=== PATIENT | female | born 1985 | race Caucasian/White ===

== ENCOUNTER 2021-08-10 13:52 | Outpatient (REF) | payer MEDICAID, SELFPAY ==
[2021-08-10 15:46] LABS: HCT 41.4 % (36.0-46.0); HGB 13.8 g/dL (11.2-15.7); MCH 29.2 pg (27.0-33.0); MCHC 33.3 % (32.0-36.0); MCV 87.5 fL (80-95); MPV 9.6 fL (8.0-11.0); Platelet Count 255 10^3/uL (130-400); RBC 4.73 10^6/uL (3.93-5.22); RDW 11.9 % (11.7-14.6); RDW-SD 38.4 fL; WBC 7.67 10^3/uL (4.4-10.8)
[2021-08-10 16:25] LABS: ALT 40 U/L (14-59); AST 18 U/L (15-37); Albumin 3.9 g/dL (3.4-5.0); Alkaline Phosphatase 55 U/L (46-116); Anion Gap 9.2 mmol/L (3-11); BUN 17 mg/dL (7-18); Bilirubin, Total 0.4 mg/dL (0.2-1.0); CO2 27.8 mmol/L (21.0-32.0); CREATININE 1.1 mg/dL (0.55-1.02); Chloride 103 mmol/L (98-107); Estimated GFR 55.59 (mL/min/1.73m2); Glucose 81 mg/dL (74-106); Potassium 4.1 mmol/L (3.5-5.1); Sodium 140 mmol/L (136-145); TSH (W/Ref FT4) 2.02 uIU/mL (0.36-3.74); Total Protein 7.1 g/dL (6.4-8.2)
== END 2021-08-10 13:53 | disposition home or self-care (01) ==
LOC: NCHCN 13:52
PROVIDERS: PCP General Practice; Visit Provider Nurse Practitioner Family
DX: I10 Essential (primary) hypertension (principal); E66.9 Obesity, unspecified
CPT/HCPCS: 80053; 85027; 84443

== ENCOUNTER 2021-08-12 12:07 | Inpatient (IN) | payer MEDICAID, SELFPAY ==
[2021-08-12] VITALS (59 sets, daily range): BP systolic 165–219; BP diastolic 80–135; PULSE 55–89; RESP 11–36; TEMP 36.4–37.2; O2SAT 93–97
--- NOTE | 2021-08-12 12:15 | RT.EKG_ITS ---
APPROVED REPORT Exam: Resting ECG Reason for Exam: chest pain Patient Location: E HR:62 bpm ECG Measurements Heart Rate 62 AXIS [place] 171 P 57 QRSd 110 QRS -7 QT 418 T -5 QTc 425 Conclusion Sinus rhythm...normal P axis, V-rate 60- 99 Probable left ventricular hypertrophy...(RaVL+SV3)xQRSd >300. Sinus. No STEMI. I have reviewed and interpreted ECG and agree with software generated interpretation.
[2021-08-12 13:43] LABS: Abs Immature Grans 0.02 10^3/uL (0.0-0.06); Absolute Basophil Count 0.02 10^3/uL (0.0-0.2); Absolute Lymphocyte Count 2.17 10^3/uL (1.2-3.4); Absolute Monocyte Count 0.61 10^3/uL (0.1-0.8); Absolute Neutrophil Count 6.79 10^3/uL (1.2-6.7); Basophils % 0.2; HCT 42.3 % (36.0-46.0); HGB 14.1 g/dL (11.2-15.7); Immature Grans % 0.2; Lymphocytes % 21.9; MCH 28.7 pg (27.0-33.0); MCHC 33.3 % (32.0-36.0); MCV 86.2 fL (80-95); MPV 9.2 fL (8.0-11.0); Monocytes % 6.2; Neutrophils % 68.5; Nucleated RBC 0 %; Platelet Count 247 10^3/uL (130-400); RBC 4.91 10^6/uL (3.93-5.22); RDW-SD 37.2 fL; WBC 9.91 10^3/uL (4.4-10.8)
--- NOTE | 2021-08-12 13:45 | DI.CT_ITS ---
Exam(s) CT HEAD WO EXAM: CT HEAD WO CLINICAL HISTORY: headache, r/o acute cva. TECHNIQUE: Imaging Protocol: Axial computed tomography images with coronal and sagittal reformatted images were created and reviewed COMPARISON: CT HEAD WITHOUT CONTRAST from 09/28/2016 FINDINGS: There are no skull fractures. There is mucosal thickening noted in the floor of the left maxillary sinus. No associated fluid level within the sinus. Remainder of the paranasal sinuses are clear as are the mastoid air cells. There is no evidence of intracranial hemorrhage, mass effect, or shift of midline structures. There are no extra-axial fluid collections. The ventricles are not enlarged or shifted and there is no blo od within the ventricular system nor within the basal cisterns. IMPRESSION: No acute intracranial findings on this noninfused CT scan of the brain. RADIATION DOSE DELIVERED: 808.68mGy.cm Total DLP DATA REPOSITORY: All CT scans at this facility are submitted to the National Radiology Data Registry (NRDR) Dose Index Registry (DIR) with the [employer] (ACR). RADIATION OPTIMIZATION: All CT scans at this facility use at least one of these dose optimization te chniques: automated exposure control; mA and/or kV adjustment per patient size (includes targeted exa ms where dose is matched to clinical indication); or iterative reconstruction.
--- NOTE | 2021-08-12 13:45 | DI.RAD_ITS ---
Exam(s) XR CHEST 2V PA LATERAL EXAM: XR CHEST 2V PA LATERAL CLINICAL HISTORY: chest pain, r/o acute disease. TECHNIQUE: 2D digital imaging was performed. COMPARISON: CR ABD FLAT UPRIGHT PA CHEST from 04/16/2013 FINDINGS: 2 views: Heart size is normal. The mediastinum is not widened. Lungs are clear. No infiltrates nor pleural effusions. IMPRESSION: No acute pulmonary findings. DATA REPOSITORY: RADIATION DOSE DELIVERED:
--- NOTE | 2021-08-12 13:48 | ED.GENADUL_ITS ---
Discharge Plan Disposition Patient Disposition: [facility] INPATIENT Condition: Good Discharge Details Clinical Impression: Hypertensive urgency, Chest pain, Headache Admit Date/Time: 08/12/21 16:48 Admit Provider: Francy Overton Attending Provider: Francy Overton Primary Care Provider: Billy Vidales ED Provider: Estefanía Alcaraz Discharge Data Discharge Date/Time-TO BE ENTERED AT DEPARTURE: 08/12/21 17:42 Medical Decision Making 36-year-old female with a history of morbid obesity recently diagnosed with hypertension and placed on hydrochlorothiazide presents with headache and chest pain since yesterday and significantly high blood pressure at home. Blood pressure on arrival 219/106. EKG notes a rate of 62, sinus, no STEMI and nondiagnostic. She appears uncomfortable and endorses photophobia. She has no focal deficits. Differential diagnosis includes hypertensive emergency and will obtain CT head and cardiac work-up. We will give a dose of labetalol 10 mg IV x1. We will also treat pain component as this may be contributing to her hypertension with IV Tylenol, Decadron and IV fluids. Case discussed with Dr. Overton who agrees with labetalol and recommends to safely lowering blood pressure to no more than 160. If work-up negative and patient feels better, can discharge to home with addition of 5 mg of Norvasc with the continued hydrochlorothiazide dose. Labs and imaging reviewed and unremarkable. CT head and chest x-ray imaging negative. Blood pressure improving 171/97. It is now increasing again to 183/92. She states her headache is completely resolved but she is still endorsing some chest pain which is improved from 6/10 to 2/10. As patient has continued chest pain and remains hypotensive, will admit for continued telemetry monitoring blood pressure management and serial troponins and EKGs. Case discussed with Dr. Overton who accepts patient for admission considering her significant hypertension and complaint of chest pain-- although she clinically does not appear consistent with dissection, Dr. Overton requested a CT chest which is negative for dissection. Discussed with hospitalist team who were informed of negative CT chest and patient is accepted for admission. Medical Records Medical records reviewed: Yes I reviewed the patient's medical records. Imaging Data Radiologic Study: Radiologist's impression: ?CT HEAD WO CLINICAL HISTORY: ? headache, r/o acute cva. ? TECHNIQUE:? Imaging Protocol: Axial computed tomography images with coronal and sagittal reformatted images were created and reviewed COMPARISON:? CT HEAD WITHOUT CONTRAST from 09/28/2016 FINDINGS: ?There are no skull fractures.? There is mucosal thickening noted in the floor of the left maxillary sinus.? No associated fluid level within the sinus.? Remainder of the paranasal sinuses are clear as are the mastoid air cells. There is no evidence of intracranial hemorrhage, mass effect, or shift of midline structures.? There are no extra-axial fluid collections.? The ventricles are not enlarged or shifted and there is no blood within the ventricular system nor within the basal cisterns. IMPRESSION: No acute intracranial findings on this noninfused CT scan of the brain. XR CHEST 2V PA ? LATERAL CLINICAL HISTORY: ? chest pain, r/o acute disease. ? TECHNIQUE:? 2D digital imaging was performed. COMPARISON:? CR ABD FLAT UPRIGHT PA CHEST from 04/16/2013 FINDINGS: 2 views: Heart size is normal.? The mediastinum is not widened. Lungs are clear.? No infiltrates nor pleural effusions. Lab Data Lab results reviewed: Yes I reviewed the patient's lab results. Labs: Laboratory Tests Range/Units 08/12/21 08/12/21 13:26 13:26 WBC (4.4-10.8) 10^3/uL 9.91 RBC (3.93-5.22) 10^6/uL 4.91 Hgb (11.2-15.7) g/dL 14.1 Hct (36.0-46.0) % 42.3 MCV (80-95) fL 86.2 MCH (27.0-33.0) pg 28.7 MCHC (32.0-36.0) % 33.3 RDW (11.7-14.6) % 12.0 Plt Count (130-400) 10^3/uL 247 MPV (8.0-11.0) fL 9.2 Immature Gran % 0.2 Neutrophils % 68.5 Lymphocytes % 21.9 Monocytes % 6.2 Eosinophils % 3.0 Basophils % 0.2 Nucleated RBC % % 0 Absolute Neutrophils (1.2-6.7) 10^3/uL 6.79 H Absolute Lymphocytes (1.2-3.4) 10^3/uL 2.17 Absolute Monocytes (0.1-0.8) 10^3/uL 0.61 Absolute Eosinophils (0.0-0.7) 10^3/uL 0.30 Absolute Basophils (0.0-0.2) 10^3/uL 0.02 Sodium (136-145) mmol/L 139 Potassium (3.5-5.1) mmol/L 3.4 L Chloride (98-107) mmol/L 101 Carbon Dioxide (21.0-32.0) mmol/L 31.1 Anion Gap (3-11) mmol/L 6.9 BUN (7-18) mg/dL 15 Creatinine (0.55-1.02) mg/dL 1.1 H Estimated GFR/1.73 m2 (mL/min/1.73m2) 55.59 Glucose (74-106) mg/dL 101 Calcium (8.5-10.1) mg/dL 9.9 Magnesium (1.8-2.4) mg/dL 1.8 Total Bilirubin (0.2-1.0) mg/dL 0.4 AST (15-37) U/L 16 ALT (14-59) U/L 35 Alkaline Phosphatase (46-116) U/L 61 Troponin I (<or=60) ng/L < 50 Total Protein (6.4-8.2) g/dL 8.1 Albumin (3.4-5.0) g/dL 4.0 ECG Data Attestation: I personally reviewed and interpreted this ECG (s) as follows: Interpretation: rate of 62, sinus, no STEMI HPI General Mode of arrival: ambulatory . Date/Time Provider Initiated Documentation: 08/12/21 12:46 . Limitations to Documentation: no limitations . Information obtained by: patient . HPI Narrative: Patient is a 36-year-old female with a history of morbid obesity and recently diagnosed hypertension who presents to the ED with complaint of chest pain and headache since yesterday with high blood pressure at home. She states she saw her PCP 2 days ago for a dermatology referral and was noted to have hypertension in the office. She states she was started on hydrochlorothiazide yesterday and states she took a dose this morning. She states she has had headache behind both eyes which is 7/10 and substernal left-sided chest pain which is 6/10, constant and sharp since yesterday. She denies any aggravating or relieving fa ctors of her chest pain. She states her headache is worse with sensitivity to light. She denies any fever, blurry vision, dizziness, neck pain, shortness of breath, nausea, vomiting or unilateral numbness or weakness. Related Data Home Medications Medication Instructions Recorded Confirmed [id number]-fhmeankdjezlt-[id number] 250 1 ea PO Q6H PRN #30 tablet 09/28/16 08/12/21 mg-250 mg-65 mg tablet (Excedrin Migraine) hydrochlorothiazide 25 mg tablet 25 mg PO DAILY 08/12/21 08/12/21 amlodipine 5 mg tablet 5 mg PO DAILY #20 tab 08/13/21 atorvastatin 20 mg tablet 20 mg PO QPM #20 tab 08/13/21 metoprolol succinate 25 mg 25 mg PO DAILY #20 tab 08/13/21 tablet,extended release 24 hr Previous Rx's Medication Instructions Recorded [id number]-eyhnntzjvcmqy-pfyehoec 250 1 ea PO Q6H PRN #30 tablet 09/28/16 mg-250 mg-65 mg tablet (Excedrin Migraine) amlodipine 5 mg tablet 5 mg PO DAILY #20 tab 08/13/21 atorvastatin 20 mg tablet 20 mg PO QPM #20 tab 08/13/21 metoprolol succinate 25 mg 25 mg PO DAILY #20 tab 08/13/21 tablet,extended release 24 hr Allergies Allergy/AdvReac Type Severity Reaction Status Date / Time No Known Allergies Allergy Unverified 08/12/21 13:50 General Stated Complaint: Chest Pain COLETTE: 2 Review of Systems All systems reviewed & are unremarkable except as noted in HPI and below Constitutional Constitutional: Reports as per HPI, Denies chills, Denies excessive sweating, Denies fatigue, Denies fever(s) and Reports headache(s) Eyes Eyes: Denies blurry vision ENT Ears, Nose, Mouth, and Throat: Denies dizziness, Reports headache(s), Denies s ore throat and Denies throat swelling Cardiovascular Cardiovascular: Reports chest pain and Denies dyspnea Respiratory Respiratory: Denies cough and Denies dyspnea Gastrointestinal Gastrointestinal: Denies abdominal pain, Denies diarrhea and Denies vomiting Genitourinary Genitourinary: Denies hematuria and Denies dysuria Musculoskeletal Musculoskeletal: Denies back pain and Denies numbness Integumentary/Breasts Skin/Breast: Denies lesions and Denies rash Neurologic Neurologic: Denies behavioral changes, Denies confusion, Denies dizziness, Reports headache(s), Denies localized weakness and Denies numbness Psychiatric Psychiatric: Denies behavioral changes, Denies confusion and Denies depression Endocrine Endocrine: Denies excessive sweating and Denies fatigue Hematologic/Lymphatic Hematologic/Lymphatic: Denies easy bruising and Denies lymphadenopathy Allergic/Immunologic Allergic/Immunologic: Denies throat swelling PFSH All Active Problems (Updated 08/14/21 @ 00:04 by ORESTES BONILLA) LISA (obstructive sleep apnea) (Chronic) Hypomagnesemia (Acute) Hyperlipidemia (Acute) Dental abscess (Acute) Medical History Dizzy spells (10/19/16) HTN (hypertension) IUD surveillance (10/18/12) IUD surveillance (09/08/16) Migraine (09/08/16) Migraine without aura and without status migrainosus, not intractable (10/19/16) Morbid obesity Surgical History No significant past surgical history Family History Mother Diabetes Essential hypertension Migraine Father No problems noted. Grandmother Breast cancer paternal Social History Smoking/Tobacco Use Status: Former Tobacco Use Smoking risk assessment performed?: Yes Alcohol Intake: never Drug use: Never Substance use type: does not use Do you feel safe at home: Yes Do you feel safe in your relationship?: Yes Exam Const General: cooperative and uncomfortable Nutritional Appearance: obese morbidly obese Orientation: alert, awake and oriented x3 HENMT Head: normal to inspection Ears: hearing grossly normal bilaterally and external ears normal General nose exam: external nose normal Face and sinus: normal facial exam Mouth: oral mucosae normal Teeth and gingiva: dentition normal Throat: posterior oropharynx normal Eyes General: appearance normal, both eyes and all related structures Eyelids: eyelids normal Pupils: PERRL EOM: EOM intact bilaterally Neck Neck: normal visual inspection Lymphatic: no lymphadenopathy noted Chest Chest: normal inspection of the chest Resp Effort & Inspection: normal respiratory effort and able to speak in complete sentences Auscultation: clear to auscultation bilaterally Cardio Rate: regular rate Rhythm: regular rhythm GI Inspection: normal to inspection Palpation: soft, not firm, no guarding, no hepatosplenomegaly, no masses and nontender Auscultation: normal bowel sounds Back/Spine/Pelvis Back: no CVA tenderness Skin General skin exam: no rashes or lesions noted Neuro General: patient alert, patient awake, patient oriented x3, moves all extremities, no meningeal signs and no focal motor deficits Cranial Nerves: CN's II-XI intact bilaterally Cognition: normal cognition Speech: speech normal Gait: normal gait Motor: muscle tone normal throughout and strength 5/5 throughout Sensory Exam: no sensory deficits noted Extrem General: normal to inspection, full ROM and capillary refill normal Psych Appearance: grossly normal Mental Status: mental status grossly normal Speech and Movement: speech and movement normal Affect: normal affect Thought Process: normal Course Vital Signs Vital signs: Vital Signs Temperature 97.5 F L 08/12/21 12:33 Pulse 83 08/12/21 12:33 Respiratory Rate 16 08/12/21 12:33 Blood Pressure 219/106 H 08/12/21 12:33 Pulse Oximetry 96 08/12/21 12:33 Temperature 97.5 F L 08/12/21 12:33 Temperature Source Skin 08/12/21 12:33 Pulse 65 08/12/21 13:39 Pulse 82 08/12/21 13:40 Respiratory Rate 22 08/12/21 13:40 Respiratory Effort 08/12/21 13:19 Respiratory Depth Normal 08/12/21 13:19 Respiratory Pattern Normal 08/12/21 13:19 Blood Pressure 198/101 H 08/12/21 13:39 Blood Pressure Mean 122 08/12/21 13:39 Blood Pressure Position Sitting 08/12/21 12:33 Pulse Oximetry 96 08/12/21 13:40 Oxygen Delivery Method Room Air 08/12/21 12:33 Oxygen Flow Rate 0 08/12/21 12:33 Pain Level 6 08/12/21 12:33 Comment 6/10 LEMUS, pounding behind eyes 08/12/21 12:33 Lab/Test Results Lab/Test Results: Laboratory Tests Range/Units 08/12/21 13:26 WBC (4.4-10.8) 10^3/uL 9.91 RBC (3.93-5.22) 10^6/uL 4.91 Hgb (11.2-15.7) g/dL 14.1 Hct (36.0-46.0) % 42.3 MCV (80-95) fL 86.2 MCH (27.0-33.0) pg 28.7 MCHC (32.0-36.0) % 33.3 RDW (11.7-14.6) % 12.0 Plt Count (130-400) 10^3/uL 247 MPV (8.0-11.0) fL 9.2 Immature Gran % 0.2 Neutrophils % 68.5 Lymphocytes % 21.9 Monocytes % 6.2 Eosinophils % 3.0 Basophils % 0.2 Nucleated RBC % % 0 Absolute Neutrophils (1.2-6.7) 10^3/uL 6.79 H Absolute Lymphocytes (1.2-3.4) 10^3/uL 2.17 Absolute Monocytes (0.1-0.8) 10^3/uL 0.61 Absolute Eosinophils (0.0-0.7) 10^3/uL 0.30 Absolute Basophils (0.0-0.2) 10^3/uL 0.02
[2021-08-12 14:02] LABS: ALT 35 U/L (14-59); AST 16 U/L (15-37); Alkaline Phosphatase 61 U/L (46-116); Anion Gap 6.9 mmol/L (3-11); BUN 15 mg/dL (7-18); Bilirubin, Total 0.4 mg/dL (0.2-1.0); CO2 31.1 mmol/L (21.0-32.0); CREATININE 1.1 mg/dL (0.55-1.02); Calcium 9.9 mg/dL (8.5-10.1); Chloride 101 mmol/L (98-107); Estimated GFR 55.59 (mL/min/1.73m2); Glucose 101 mg/dL (74-106); Magnesium 1.8 mg/dL (1.8-2.4); Potassium 3.4 mmol/L (3.5-5.1); Sodium 139 mmol/L (136-145); Total Protein 8.1 g/dL (6.4-8.2); Troponin I < 50 ng/L (<or=60)
[2021-08-12] MEDS: Labetalol 100 MG/20 ML VIAL 10 MG IVP (14:08)
[2021-08-12] MEDS: Dexamethasone 10 MG/ML VIAL IVP (14:19)
[2021-08-12] MEDS: ACETAMINOPHEN 1,000 MG/100 ML BTL 400 MG IVPB (14:19)
[2021-08-12] MEDS: Normal Saline 500 ML IV (14:19)
--- NOTE | 2021-08-12 15:45 | DI.CT_ITS ---
Exam(s) CT THORAX CTA EXAM: CT THORAX CTA CLINICAL HISTORY: L sided chest pain, r/o dissection. TECHNIQUE: Imaging Protocol: CT angiography of the chest was performed using pulmonary embolus charan col. Multi planar reconstructions were performed. CONTRAST MATERIAL: Intravenous: Omnipaque 350 Contrast volume: 100 cc COMPARISON: No exams were available for comparison FINDINGS: CHEST: PULMONARY ARTERIES: There are no intraluminal filling defects to suggest acute pulmonary emboli. THORACIC AORTIC: Upper normal size. No dissection. LUNGS: There are no infiltrates nor evidence of pulmonary infarction.. There are no pleural effusions . No ominous pulmonary nodules MEDIASTINUM: There is no hilar nor mediastinal adenopathy. Visualized thyroid unremarkable. CARDIAC: Heart size is upper normal. There is no pericardial effusion.Caliber of the thoracic aorta is within normal limits. There is no significant shift of the interventricular septum. PARTIALLY VISUALIZED UPPERMOST ABDOMEN: No adrenal masses. Hepatic steatosis noted OSSEOUS: No significant osseous lesions.. IMPRESSION: 1. No evidence of acute pulmonary emboli. No evidence of pulmonary infarction.Lungs are clear. Ther e are also no pleural effusions 2. No evidence of aortic dissection. No pericardial effusion. Heart size normal. RADIATION DOSE DELIVERED: 607.6mGy.cm Total DLP DATA REPOSITORY: All CT scans at this facility are submitted to the National Radiology Data Registry (NRDR) Dose Index Registry (DIR) with the [employer] (ACR). RADIATION OPTIMIZATION: All CT scans at this facility use at least one of these dose optimization te chniques: automated exposure control; mA and/or kV adjustment per patient size (includes targeted exa ms where dose is matched to clinical indication); or iterative reconstruction.
[2021-08-12] MEDS: Omnipaque 350 MG/ML 100 ML BTL IJ (16:09)
--- NOTE | 2021-08-12 16:58 | HPE_ITS ---
Date of service: 08/12/21 Time of Service: 16:59 Assessment and Plan Assessment and plan (1) Hypertensive urgency: Start date: 08/12/21 Start time: 17:40 Status: Acute Assessment and plan: Blood pressures in the emergency room in the 220's systollically over 100's. Given labetalol in the ED, she was then below 180's. Will order telemetry, echo for Sunday, though she does not know if she can stay the ; the ultimate goal is for BP to slowly come down to 140's -160's then defer to pcp to tighten bp. She is agreeable to working on bp under 160 Requiring IV doses at this time Agreeable to outpatient Echo. (2) Chest pain: Start date: 08/12/21 Start time: 17:40 Status: Resolved Assessment and plan: No chest pain upon arrival to floor. (3) Headache: Start date: 08/12/21 Start time: 17:40 Status: Acute Assessment and plan: LEMUS resolved prior to arrival to floor. likely all related to bp elevation, possible dehydration (4) Hypokalemia: Start date: 08/12/21 Start time: 17:43 Status: Acute Assessment and plan: K level 3.4 will supplement with potassium and NS, monitor labs (5) DVT prophylaxis: Start date: 08/12/21 Start time: 17:40 Status: Acute Assessment and plan: Enoxaparin subcu based on wt., based on age she would not require chemical ppx however d/t BP and risk for CVA will anticoagulate (6) Discharge planning issues: Start date: 08/12/21 Start time: 17:43 Status: Acute Assessment and plan: Patient would like to go home as soon as possible. Discussed with Dr. Overton History of Present Illness History of Present Illness Chief Complaint: HTN uregency, LEMUS, CP Narrative: 36 y.o female presents to [facility] with a LEMUS, CP, and High blood pressure since feeling this way x 2 days. She was seen at her PCP on Sunday and noticed to have elevated BP at that time. She is morbidly obese with wt gain of almost a 100 lb in a couple of months since quitting smoking; at her PCP office she was placed on HCTZ. On arrival to the ED her bp was in the high 200's over 100's. EKG did reveal no STEMI, sinus rate of 62 without any other ectopic beats. She was given labetalol x 1, IV tylenol, decadron and IVF. CT of her head revealed no acuted findings, cxray negative for any acute process and thoracic CT ne gative for no PE, pulmonary infarctions, aortic dissections, or pericardial effusion. At this time her BP is 183/92 and she has been asked to be admitted to m/s for further maintenance. She is being admitted to m/s telemetery for further observation. At this time it is prudent to keep her SBP between 160-180, therefore IV lopressor to be given for SBP over 180 held for under 160. She will be initiated on IVF NS with 20K @ 100 an hour d/t hypokalemia. While on telemetry, monitor HR, urine and labs. Check for A1c, lipid panel. Consult cashiers supervisor. She would benefit from an echo the earliest would be Sunday. She does not know if she can stay until echo she is agreeable to getting be Bp to reasonable rate of 140-160 prior to d/c and having echo as an ouptpatient. She wants to go home to her kids and . She is agreeable to speaking with a cashiers supervisor. Review of Systems All systems reviewed & are unremarkable except as noted in HPI and below PFSH All Active Problems (Updated 08/13/21 @ 08:58 by Diana Lomas NP) Discharge planning issues (Acute) Hypokalemia (Acute) DVT prophylaxis (Acute) Hypertensive urgency (Acute) Headache (Acute) Dental abscess (Acute) Medical History Dizzy spells (10/19/16) HTN (hypertension) IUD surveillance (10/18/12) IUD surveillance (09/08/16) Migraine (09/08/16) Migraine without aura and without status migrainosus, not intractable (10/19/16) Morbid obesity Surgical History No significant past surgical history Family History Mother Diabetes Essential hypertension Migraine Father No problems noted. Grandmother Breast cancer paternal Social History Smoking/Tobacco Use Status: Former Tobacco Use Smoking risk assessment performed?: Yes Alcohol Intake: never Drug use: Never Substance use type: does not use Do you feel safe at home: Yes Do you feel safe in your relationship?: Yes Meds Allergies and Home Medications Allergies Allergy/AdvReac Type Severity Reaction Status Date / Time No Known Allergies Allergy Unverified 08/12/21 13:50 Home Medications Medication Instructions Recorded Confirmed Type dqayiew-jqetttertdypy-ylpzizcn 250 1 ea PO Q6H PRN #30 tablet 09/28/16 08/12/21 Rx mg-250 mg-65 mg tablet (Excedrin Migraine) hydrochlorothiazide 25 mg tablet 25 mg PO DAILY 08/12/21 08/12/21 History Exam Narrative Exam Narrative: Pleasant and cooperative. Const General: cooperative, comfortable and no acute distress Nutritional Appearance: obese morbidly obese Orientation: alert, awake and oriented x3 Eyes Eyelids: eyelids normal Pupils: PERRL EOM: EOM intact bilaterally Neck Neck: normal visual inspection and no JVD Lymphatic: no lymphadenopathy noted Resp Effort & Inspection: normal respiratory effort Auscultation: clear to auscultation bilaterally Cardio Jugular venous pressure: no JVD Rhythm: regular rhythm Heart Sounds: S1 normal GI Auscultation: normal bowel sounds General: No CVA tenderness and deferred Skin General skin exam: no rashes or lesions noted Neuro General: patient alert, patient awake and patient oriented x3 Cognition: normal cognition Speech: speech normal Gait: normal gait Extrem General: normal to inspection, full ROM and no clubbing, cyanosis or edema Results Labs Result diagrams: 08/13/21 06:40 08/13/21 06:40 Labs: Laboratory Results - last 24 hr 08/12/21 08/12/21 13:26 13:26 WBC 9.91 RBC 4.91 Hgb 14.1 Hct 42.3 MCV 86.2 MCH 28.7 MCHC 33.3 RDW 12.0 Plt Count 247 MPV 9.2 Immature Gran % 0.2 Neutrophils % 68.5 Lymphocytes % 21.9 Monocytes % 6.2 Eosinophils % 3.0 Basophils % 0.2 Nucleated RBC % 0 Absolute Neutrophils 6.79 H Absolute Lymphocytes 2.17 Absolute Monocytes 0.61 Absolute Eosinophils 0.30 Absolute Basophils 0.02 Sodium 139 Potassium 3.4 L Chloride 101 Carbon Dioxide 31.1 Anion Gap 6.9 BUN 15 Creatinine 1.1 H Estimated GFR/1.73 m2 55.59 Glucose 101 Calcium 9.9 Magnesium 1.8 Total Bilirubin 0.4 AST 16 ALT 35 Alkaline Phosphatase 61 Troponin I < 50 Total Protein 8.1 Albumin 4.0 Last Vital Signs Temp 36.4 C L 08/12/21 12:33 Pulse 74 08/12/21 16:14 Resp 16 08/12/21 16:14 BP 183/92 H 08/12/21 16:14 Pulse Ox 96 08/12/21 16:14
[2021-08-12 17:57] LABS: *AMPHETAMINES SCREEN URINE Negative (Negative); *BARBITURATES SCREEN URINE Negative (Negative); *BENZODIAZEPINES SCREEN URINE Negative (Negative); Cannabinoids THC Negative (Negative); Cocaine Screen,Urine Negative (Negative); METHADONE URINE SCREEN Negative (Negative); OPIATES URINE SCREEN Negative (Negative)
[2021-08-12 17:59] LABS: Tricyclic Antidepressants Negative (Negative)
[2021-08-12] MEDS: amLODIPine 5 MG TAB PO (18:11)
[2021-08-12] MEDS: Enoxaparin 40 MG/0.4 ML SYR SC (18:11)
[2021-08-12 18:14] LABS: Source Nasal/Nares
[2021-08-12] MEDS: Metoprolol 5 MG/5 ML VIAL IVP (18:15)
[2021-08-12] MEDS: Normal Saline Flush 10 ML SYR (18:45)
[2021-08-12 18:54] LABS: COVID-19 PCR Negative (Negative)
[2021-08-12] MEDS: POTASSIUM CHLORIDE/0.9% NACL 1,000 ML 100 MEQ IV (20:00)
[2021-08-12] MEDS: hydrALAZINE 20 MG/ML VIAL 10 MG IVP (20:37)
[2021-08-13 01:19] LABS: Bilirubin Negative (Negative); Blood Moderate (Negative); Clarity Clear (Clear); Glucose 500 mg/dL (Negative); Ketones Negative (Negative); Leukocyte Esterase Negative (Negative); Nitrite Negative (Negative); Urobilinogen 0.2 EU/dL (Up TO 0.2)
[2021-08-13 01:43] LABS: Bacteria Rare HPF (Negative); C & S Indicated? No; Crystals Negative HPF (Negative); Epithelial Cells Moderate HPF (Negative); Mucus Trace (Negative); WBC 0-2 HPF (0-5)
[2021-08-13] MEDS: Melatonin 3 MG TAB PO (02:54)
[2021-08-13 03:45] VITALS: BP 167/90; PULSE 78; RESP 20; TEMP 36.8; O2SAT 96
[2021-08-13] MEDS: POTASSIUM CHLORIDE/0.9% NACL 1,000 ML 100 MEQ IV (06:00)
[2021-08-13 07:39] LABS: Abs Immature Grans 0.06 10^3/uL (0.0-0.06); Absolute Basophil Count 0.01 10^3/uL (0.0-0.2); Absolute Lymphocyte Count 1.27 10^3/uL (1.2-3.4); Absolute Monocyte Count 0.41 10^3/uL (0.1-0.8); Absolute Neutrophil Count 10.94 10^3/uL (1.2-6.7); Basophils % 0.1; HCT 41.6 % (36.0-46.0); HGB 13.9 g/dL (11.2-15.7); Immature Grans % 0.5; MCH 28.9 pg (27.0-33.0); MCHC 33.4 % (32.0-36.0); MCV 86.5 fL (80-95); MPV 9.4 fL (8.0-11.0); Monocytes % 3.2; Neutrophils % 86.2; Nucleated RBC 0 %; Platelet Count 267 10^3/uL (130-400); RBC 4.81 10^6/uL (3.93-5.22); RDW 12.2 % (11.7-14.6); RDW-SD 38.1 fL; WBC 12.69 10^3/uL (4.4-10.8)
[2021-08-13 08:00] VITALS: BP 160/79; PULSE 82; RESP 20; TEMP 36.5; O2SAT 95
[2021-08-13 08:07] LABS: Hemoglobin A1C 5.9 % (<5.7)
[2021-08-13 08:12] LABS: ALT 29 U/L (14-59); AST 10 U/L (15-37); Albumin 3.6 g/dL (3.4-5.0); Alkaline Phosphatase 61 U/L (46-116); Anion Gap 10.9 mmol/L (3-11); BUN 19 mg/dL (7-18); Bilirubin, Total 0.2 mg/dL (0.2-1.0); CO2 26.1 mmol/L (21.0-32.0); Calculated LDL 157 mg/dL (<100); Chloride 103 mmol/L (98-107); Cholesterol 235 mg/dL (<200); Glucose 142 mg/dL (74-106); HDL Cholesterol 53 mg/dL (40-60); Magnesium 1.6 mg/dL (1.8-2.4); Potassium 3.7 mmol/L (3.5-5.1); Sodium 140 mmol/L (136-145); Total Protein 7.6 g/dL (6.4-8.2); Triglyceride 125 mg/dL (<150)
[2021-08-13 08:40] VITALS: PULSE 75
[2021-08-13] MEDS: amLODIPine 5 MG TAB PO (08:49)
[2021-08-13] MEDS: MAGNESIUM SULFATE 4 GM/100 ML BAG IVPB (10:37)
[2021-08-13] MEDS: hydroCHLOROthiazide 25 MG TAB PO (10:37)
[2021-08-13] MEDS: Metoprolol 12.5 MG TAB PO (10:37)
[2021-08-13 11:30] VITALS: BP 161/87; PULSE 85; RESP 19; TEMP 36.5; O2SAT 95
[2021-08-13 12:00] VITALS: BP 161/87; PULSE 85; RESP 19; TEMP 36.5; O2SAT 95
--- NOTE | 2021-08-13 13:09 | W.PM.DS.N ---
Date of service: 08/13/21 Time of Service: 10:30 DS: Diagnosis Discharge Diagnosis (1) Hypertensive urgency: Start date: 08/13/21 Start time: 10:30 Status: Acute Asessment and Plan: patient seen by PCP on sunday and shown to have bp over 200's started on HCTZ, presented to [facility] yesterday with CP, dizziness and LEMUS. She states it got progressively worse, therefore she came in. She was placed on amlodipine, teley with IV lopressor prn and oral lopressor to keep bp at 160; ideally 160 with follow with PCP next week defer to PCP for tighter control and to work on patients bp titration of medications. BP have been continuously 160's since NM. Will do outpatient echo and d/c home on atorvastatin 20 mg as well as she has elevated lipid panel. Agreeable to following up with a nutrionist as an outpatient as well. Low sodium diet. Discussed mediterran diet. A1C 5.9 (2) Hyperlipidemia: Start date: 08/13/21 Start time: 13:25 Status: Acute Asessment and Plan: as above (3) Chest pain: Start date: 08/13/21 Start time: 13:25 Status: Resolved Asessment and Plan: resolved no chest pain (4) Headache: Start date: 08/13/21 Start time: 13:28 Status: Resolved Asessment and Plan: Resolved no longer having LEMUS (5) Hypokalemia: Start date: 08/13/21 Start time: 13:25 Status: Resolved Asessment and Plan: resolved with IV supplementation (6) Hypomagnesemia: Start date: 08/13/21 Start time: 13:26 Status: Acute Asessment and Plan: 1.6 this am, repleted with 4 mg magnesium discussed with Dr. Overton. Discharge Plan Disposition Patient Disposition: HOME Condition: Good Discharge Details Reason For Visit: HTN, LEMUS Admit Date/Time: 08/12/21 16:48 Admit Provider: Francy Overton Attending Provider: Francy Overton Primary Care Provider: Billy Vidales Hospital Course Hospital Course: 36 y.o female presented to [facility] with a LEMUS, CP, and High blood pressure feeling this way x 2 days. She was seen at her PCP's office on Sunday and noticed to have elevated BP at that time. She is morbidly obese with wt gain of almost a 100 lb in a couple of months since quitting smoking; at her PCP office she was placed on HCTZ. On arrival to the ED her bp was in the high 200's over 100's. EKG did reveal no STEMI, sinus rate of 62 without any other ectopic beats. She was given labetalol x 1, IV tylenol, decadron and IVF. CT of her head revealed no acuted findings, cxray negative for any acute process and thoracic CT negative for no PE, pulmonary infarctions,? aortic dissections, or pericardial effusion. At this time her BP is 183/92 and she has been asked to be admitted to [facility] for further maintenance. She was admitted to [facility] with goal to keep BP around 160's. Over night she did require a dose medication due to higher elevations, overnight provider ordered hydralizine. She was placed on oral BB this am in addition to norvasc and hctz, since she has maintained in the 160's systolically and under 100's diabolically. We discussed dietary changes, and exercise. Lipid panel this am revealed elevated LDL at 157 with total cholesterol of 235. Started on atorvastatin. Discussed side effects of this medication. She will also be going home on amlodipine and lopressor in addition to HCTZ. Defer to PCP for tighter control of BP. Patient agreeable to echo and outpatient sleep study. She does have LISA but has not had sleep study in years. Will have her follow up in 1-2 weeks with PCP. She denies CP, SOB, LEMUS. States she is feeling much better and ready for discharge. Home Meds and New Rx's Prescriptions: New amlodipine 5 mg Tablet 5 mg PO DAILY Qty: 20 0RF atorvastatin 20 mg Tablet 20 mg PO QPM Qty: 20 0RF metoprolol succinate 25 mg tablet extended release 24 hr 25 mg PO DAILY Qty: 20 0RF Continued hydrochlorothiazide 25 mg tablet 25 mg PO DAILY 0RF Label Comments: TAKE ONE TABLET BY MOUTH EVERY DAY Excedrin Migraine 1 EACH tablet 1 ea PO Q6H PRN (Reason: Headache) Qty: 30 0RF Discharge Instructions Instructions: Hypokalemia (DC), Hypertensive Crisis (DC), Hypomagnesemia (DC), Mediterranean Diet (DC) Additional Instructions: Follow up with PCP in 1-2 weeks we will call Fabricio to make appt and call you with time and date. Follow Mediterranean diet. Set small goals Try to lose 10% of your body weight. Meet with the [facility] consultant, will set up to meet as an outpatient Echo to be set up as an outpatient and sleep study to be done as outpatient Buy bp cuff and measure bp twice a day after sitting for 10 mins with legs uncrossed, keep numbers written down and take to primary provider appt. Activity:: Activity as Tolerated Equipment/Supplies:: blood pressure cuff Diet:: Low Sodium Discharge Orders Discharge Orders: Discharge Order (Routine); Ordered 08/13/21 Ordered By: Diana Lomas DS: Summary Time Spent with Patient providing and/or coordinating discharge services: Less than 30 minutes Status at Discharge Functional status at discharge: independent ambulation Overall status at discharge: patient is progressing back to baseline Mental Status: mental status grossly normal Speech and Movement: speech and movement normal Mood: congruent mood Affect: normal affect Exam Narrative Exam Narrative: Pleasant and cooperative. Const General: cooperative, comfortable and no acute distress Nutritional Appearance: obese morbidly obese Orientation: alert, awake and oriented x3 Eyes Eyelids: eyelids normal Pupils: PERRL EOM: EOM intact bilaterally Neck Neck: normal visual inspection and no JVD Lymphatic: no lymphadenopathy noted Chest Chest: normal inspection of the chest and normal palpation of entire chest wall Resp Effort & Inspection: normal respiratory effort Auscultation: clear to auscultation bilaterally Cardio Jugular venous pressure: no JVD Rate: regular rate Rhythm: regular rhythm Heart Sounds: S1 normal GI Auscultation: normal bowel sounds General: No CVA tenderness and deferred Skin General skin exam: no rashes or lesions noted Neuro General: patient alert, patient awake and patient oriented x3 Cognition: normal cognition Speech: speech normal Gait: normal gait Extrem General: normal to inspection, full ROM and no clubbing, cyanosis or edema Psych Appearance: grossly normal and well kempt Mental Status: mental status grossly normal Speech and Movement: speech and movement normal Mood: congruent mood Affect: normal affect Attitude: cooperative DS: Data Vitals/I&O Vitals and I&O: Vital Signs Temperature 36.5 C 08/13/21 12:00 Temperature Source Temporal Artery Scan 08/13/21 12:00 Pulse 85 08/13/21 12:00 Pulse Rhythm Regular 08/13/21 08:20 Pulse 83 08/12/21 18:25 Respiratory Rate 19 08/13/21 12:00 Respiratory Effort Non-Labored 08/13/21 08:20 Respiratory Depth Normal 08/13/21 08:20 Respiratory Pattern Normal 08/13/21 08:20 Blood Pressure 161/87 H 08/13/21 12:00 Blood Pressure Mean 110 08/12/21 17:31 Blood Pressure Position Sitting 08/12/21 12:33 Pulse Oximetry 95 08/13/21 12:00 Oxygen Delivery Method Room Air 08/13/21 12:00 Oxygen Flow Rate 0 08/13/21 12:00 Pain Level 0 08/13/21 08:00 Comment 08/13/21 03:45 Intake & Output 08/12/21 08/13/21 08/13/21 23:59 11:59 23:59 Intake Total 600 / 600 1480 / 1480 Balance 600 / 600 1480 / 1480 Weight 132.449 kg Intake: IV 600 / 600 1000 / 1000 Oral 480 / 480 Other: Urine Appearance Clear Clear Sediment Sediment Comment pT voids independently in toilet Voiding Methods Toilet Data Completed and Pending Completed studies during hospitalization [Text1]: Exam(s) XR CHEST 2V PA ? LATERAL EXAM:? XR CHEST 2V PA ? LATERAL CLINICAL HISTORY: ? chest pain, r/o acute disease. ? TECHNIQUE:? 2D digital imaging was performed. COMPARISON:? CR ABD FLAT UPRIGHT PA CHEST from 04/16/2013 FINDINGS: 2 views: Heart size is normal.? The mediastinum is not widened. Lungs are clear.? No infiltrates nor pleural effusions. IMPRESSION: No acute pulmonary findings. EXAM: ? CT HEAD WO CLINICAL HISTORY: ? headache, r/o acute cva. ? TECHNIQUE:? Imaging Protocol: Axial computed tomography images with coronal and sagittal reformatted images were created and reviewed COMPARISON:? CT HEAD WITHOUT CONTRAST from 09/28/2016 FINDINGS: ?There are no skull fractures.? There is mucosal thickening noted in the floor of the left maxillary sinus.? No associated fluid level within the sinus.? Remainder of the paranasal sinuses are clear as are the mastoid air cells. There is no evidence of intracranial hemorrhage, mass effect, or shift of midline structures.? There are no extra-axial fluid collections.? The ventricles are not enlarged or shifted and there is no blood within the ventricular system nor within the basal cisterns. IMPRESSION: No acute intracranial findings on this noninfused CT scan of the brain. CHEST: PULMONARY ARTERIES: There are no intraluminal filling defects to suggest acute pulmonary emboli. THORACIC AORTIC: Upper normal size.? No dissection. LUNGS: There are no infiltrates nor evidence of pulmonary infarction.. There are no pleural effusions.? No ominous pulmonary nodules MEDIASTINUM: There is no hilar nor mediastinal adenopathy. Visualized thyroid unremarkable. CARDIAC: Heart size is upper normal.? There is no pericardial effusion.Caliber of the thoracic aorta is within normal limits.? There is no significant shift of the interventricular septum. PARTIALLY VISUALIZED UPPERMOST ABDOMEN: No adrenal masses.? Hepatic steatosis noted OSSEOUS: No significant osseous lesions.. IMPRESSION: 1. No evidence of acute pulmonary emboli.? No evidence of pulmonary infarction.Lungs are clear.? There are also no pleural effusions 2. No evidence of aortic dissection.? No pericardial effusion.? Heart size normal. Labs on day of discharge: Labs from last 24 hours 08/13/21 08/13/21 08/13/21 06:40 06:40 06:40 WBC 12.69 H RBC 4.81 Hgb 13.9 Hct 41.6 MCV 86.5 MCH 28.9 MCHC 33.4 RDW 12.2 Plt Count 267 MPV 9.4 Immature Gran % 0.5 Neutrophils % 86.2 Lymphocytes % 10.0 Monocytes % 3.2 Eosinophils % 0.0 Basophils % 0.1 Nucleated RBC % 0 Absolute Neutrophils 10.94 H Absolute Lymphocytes 1.27 Absolute Monocytes 0.41 Absolute Eosinophils 0.00 Absolute Basophils 0.01 Sodium 140 Potassium 3.7 Chloride 103 Carbon Dioxide 26.1 Anion Gap 10.9 BUN 19 H Creatinine 1.0 Estimated GFR/1.73 m2 >= 60.00 Glucose 142 H Hemoglobin A1c 5.9 H Calcium 9.0 Magnesium 1.6 L Total Bilirubin 0.2 AST 10 L ALT 29 Alkaline Phosphatase 61 Troponin I Total Protein 7.6 Albumin 3.6 Triglycerides 125 Total Cholesterol 235 H LDL Cholesterol, Calc 157 H HDL Cholesterol 53 Urine Color Urine Clarity Urine pH Ur Specific [place] Urine Protein Urine Ketones Urine Blood Urine Nitrite Urine Bilirubin Urine Urobilinogen Ur Leukocyte Esterase Urine RBC Urine WBC Ur Epithelial Cells Urine Crystals Urine Bacteria Urine Mucus Ur Culture Indicated? Urine Glucose Urine Opiates Screen Urine Methadone Screen Ur Barbiturates Screen Ur Tricyclics Screen Ur Amphetamines Screen U Benzodiazepines Scrn Urine Cocaine Screen Ur THC Screen COVID-19 Source SARS-CoV-2 (PCR) 08/13/21 08/13/21 08/12/21 01:03 00:37 17:30 WBC RBC Hgb Hct MCV MCH MCHC RDW Plt Count MPV Immature Gran % Neutrophils % Lymphocytes % Monocytes % Eosinophils % Basophils % Nucleated RBC % Absolute Neutrophils Absolute Lymphocytes Absolute Monocytes Absolute Eosinophils Absolute Basophils Sodium Potassium Chloride Carbon Dioxide Anion Gap BUN Creatinine Estimated GFR/1.73 m2 Glucose Hemoglobin A1c Calcium Magnesium Total Bilirubin AST ALT Alkaline Phosphatase Troponin I Total Protein Albumin Triglycerides Total Cholesterol LDL Cholesterol, Calc HDL Cholesterol Urine Color Cancelled Yellow Urine Clarity Cancelled Clear Urine pH Cancelled 7.0 Ur Specific [place] Cancelled 1.020 Urine Protein Cancelled 30 H Urine Ketones Cancelled Negative Urine Blood Cancelled Moderate H Urine Nitrite Cancelled Negative Urine Bilirubin Cancelled Negative Urine Urobilinogen Cancelled 0.2 Ur Leukocyte Esterase Cancelled Negative Urine RBC 5-10 H Urine WBC 0-2 Ur Epithelial Cells Moderate Urine Crystals Negative Urine Bacteria Rare Urine Mucus Trace Ur Culture Indicated? No Urine Glucose Cancelled 500 H Urine Opiates Screen Urine Methadone Screen Ur Barbiturates Screen Ur Tricyclics Screen Ur Amphetamines Screen U Benzodiazepines Scrn Urine Cocaine Screen Ur THC Screen COVID-19 Source Nasal/Nares SARS-CoV-2 (PCR) Negative 08/12/21 08/12/21 08/12/21 17:22 14:30 13:26 WBC 9.91 RBC 4.91 Hgb 14.1 Hct 42.3 MCV 86.2 MCH 28.7 MCHC 33.3 RDW 12.0 Plt Count 247 MPV 9.2 Immature Gran % 0.2 Neutrophils % 68.5 Lymphocytes % 21.9 Monocytes % 6.2 Eosinophils % 3.0 Basophils % 0.2 Nucleated RBC % 0 Absolute Neutrophils 6.79 H Absolute Lymphocytes 2.17 Absolute Monocytes 0.61 Absolute Eosinophils 0.30 Absolute Basophils 0.02 Sodium Potassium Chloride Carbon Dioxide Anion Gap BUN Creatinine Estimated GFR/1.73 m2 Glucose Hemoglobin A1c Calcium Magnesium Total Bilirubin AST ALT Alkaline Phosphatase Troponin I Total Protein Albumin Triglycerides Total Cholesterol LDL Cholesterol, Calc HDL Cholesterol Urine Color Urine Clarity Urine pH Ur Specific [place] Urine Protein Urine Ketones Urine Blood Urine Nitrite Urine Bilirubin Urine Urobilinogen Ur Leukocyte Esterase Urine RBC Urine WBC Ur Epithelial Cells Urine Crystals Urine Bacteria Urine Mucus Ur Culture Indicated? Urine Glucose Urine Opiates Screen Negative Urine Methadone Screen Negative Ur Barbiturates Screen Negative Ur Tricyclics Screen Negative Ur Amphetamines Screen Negative U Benzodiazepines Scrn Negative Urine Cocaine Screen Negative Ur THC Screen Negative COVID-19 Source Cancelled SARS-CoV-2 (PCR) Cancelled 08/12/21 13:26 WBC RBC Hgb Hct MCV MCH MCHC RDW Plt Count MPV Immature Gran % Neutrophils % Lymphocytes % Monocytes % Eosinophils % Basophils % Nucleated RBC % Absolute Neutrophils Absolute Lymphocytes Absolute Monocytes Absolute Eosinophils Absolute Basophils Sodium 139 Potassium 3.4 L Chloride 101 Carbon Dioxide 31.1 Anion Gap 6.9 BUN 15 Creatinine 1.1 H Estimated GFR/1.73 m2 55.59 Glucose 101 Hemoglobin A1c Calcium 9.9 Magnesium 1.8 Total Bilirubin 0.4 AST 16 ALT 35 Alkaline Phosphatase 61 Troponin I < 50 Total Protein 8.1 Albumin 4.0 Triglycerides Total Cholesterol LDL Cholesterol, Calc HDL Cholesterol Urine Color Urine Clarity Urine pH Ur Specific [place] Urine Protein Urine Ketones Urine Blood Urine Nitrite Urine Bilirubin Urine Urobilinogen Ur Leukocyte Esterase Urine RBC Urine WBC Ur Epithelial Cells Urine Crystals Urine Bacteria Urine Mucus Ur Culture Indicated? Urine Glucose Urine Opiates Screen Urine Methadone Screen Ur Barbiturates Screen Ur Tricyclics Screen Ur Amphetamines Screen U Benzodiazepines Scrn Urine Cocaine Screen Ur THC Screen COVID-19 Source SARS-CoV-2 (PCR) PFSH All Active Problems Hypomagnesemia (Acute) Hyperlipidemia (Acute) Discharge planning issues (Acute) DVT prophylaxis (Acute) Hypertensive urgency (Acute) Dental abscess (Acute) Medical History Dizzy spells (10/19/16) HTN (hypertension) IUD surveillance (10/18/12) IUD surveillance (09/08/16) Migraine (09/08/16) Migraine without aura and without status migrainosus, not intractable (10/19/16) Morbid obesity Surgical History No significant past surgical history Family History Mother Diabetes Essential hypertension Migraine Father No problems noted. Grandmother Breast cancer paternal Social History Smoking/Tobacco Use Status: Former Tobacco Use Smoking risk assessment performed?: Yes Alcohol Intake: never Drug use: Never Substance use type: does not use Do you feel safe at home: Yes Do you feel safe in your relationship?: Yes
[2021-08-13] MEDS: Metoprolol CR 25 MG TABCR PO (13:54)
[2021-08-13] MEDS: Normal Saline Flush 10 ML SYR IVP (14:51)
== END 2021-08-13 15:13 | disposition home or self-care (01) | DRG 305 ==
LOC: ER 17:46 → MS 17:50
PROVIDERS: Nurse Practitioner Family; Admitting Provider Internal Medicine; Emergency Provider Physician Assistant; PCP General Practice; Visit Provider Internal Medicine
DX: I16.0 Hypertensive urgency (principal); Z68.43 Body mass index [BMI] 50.0-59.9, adult; E87.6 Hypokalemia; R07.89 Other chest pain; E66.01 Morbid (severe) obesity due to excess calories; K04.7 Periapical abscess without sinus; G43.709 Chronic migraine without aura, not intractable, without status migrainosus; E78.5 Hyperlipidemia, unspecified; E83.42 Hypomagnesemia; G47.33 Obstructive sleep apnea (adult) (pediatric); Z87.891 Personal history of nicotine dependence
CPT/HCPCS: 36415; 71275; 80053; 80061; 80307; 81025; 87635; 93005; 96361; 96374; 96375; 99285; J1650; 70450; 71046; 81003; 81015; 83036; 83735; 84484; 85025; 93010; 99217; 99222; J0131; J0360; J1100; J3475; J3490

== ENCOUNTER 2021-09-06 12:59 | Outpatient (REF) | payer MEDICAID, SELFPAY ==
--- NOTE | 2021-09-06 10:45 | SKI_PTH ---
PATIENT: Flora Roldan I LOC: [facility]#:[id number] AGE/SX: 36/F ROOM: RE09/06/[address]: Quincy Velez : 1985 BED: DIS: 09/06/2021 SPEC #: [id number] RECD: 09/06/21 14:44 STATUS: BHARATH REQ #: [id number] GEGE: 09/06/21 10:[address]: Quincy Velez DEPT: Surgical Specimen RECD BY: Miguel Fleming Tissues: 1 - SKIN CYST/TAG/DEBRIDEMENT Procedures: GROSS AND MICRO LEVEL 3 Comments: [id number]
== END 2021-09-06 13:00 | disposition home or self-care (01) ==
LOC: NCHCN 12:59
PROVIDERS: PCP General Practice; Visit Provider Family Medicine
DX: D23.5 Other benign neoplasm of skin of trunk (principal); D22.5 Melanocytic nevi of trunk
CPT/HCPCS: 88304

== ENCOUNTER 2021-09-22 20:08 | Outpatient (REF) | payer MEDICAID, SELFPAY ==
[2021-09-22 20:55] LABS: Anion Gap 5.5 mmol/L (3-11); BUN 17 mg/dL (7-18); CO2 28.5 mmol/L (21.0-32.0); CREATININE 1.1 mg/dL (0.55-1.02); Calcium 9.3 mg/dL (8.5-10.1); Chloride 100 mmol/L (98-107); Estimated GFR 55.59 (mL/min/1.73m2); Glucose 88 mg/dL (74-106); Potassium 3.3 mmol/L (3.5-5.1); Sodium 134 mmol/L (136-145)
== END 2021-09-22 20:09 | disposition home or self-care (01) ==
LOC: NCHCN 20:08
PROVIDERS: PCP General Practice; Visit Provider Nurse Practitioner Family
DX: R94.4 Abnormal results of kidney function studies (principal)
CPT/HCPCS: 80048

== ENCOUNTER 2022-02-28 14:58 | Outpatient (REF) | payer MEDICAID, SELFPAY ==
[2022-02-28 23:14] LABS: Anion Gap 11.8 mmol/L (3-11); BUN 20 mg/dL (7-18); CO2 28.2 mmol/L (21.0-32.0); CREATININE 1.1 mg/dL (0.55-1.02); Calcium 9.4 mg/dL (8.5-10.1); Calculated LDL 143 mg/dL (<100); Chloride 101 mmol/L (98-107); Cholesterol 209 mg/dL (<200); Estimated GFR 65.96 (mL/min/1.73m2); Glucose 109 mg/dL (74-106); HDL Cholesterol 43 mg/dL (40-60); Magnesium 1.6 mg/dL (1.8-2.4); Potassium 3.4 mmol/L (3.5-5.1); Sodium 141 mmol/L (136-145); Triglyceride 116 mg/dL (<150)
== END 2022-02-28 14:59 | disposition home or self-care (01) ==
LOC: NCHCN 14:58
PROVIDERS: PCP General Practice; Visit Provider Nurse Practitioner Family
DX: E78.5 Hyperlipidemia, unspecified (principal); I10 Essential (primary) hypertension; E83.42 Hypomagnesemia; R94.4 Abnormal results of kidney function studies; E66.9 Obesity, unspecified
CPT/HCPCS: 80048; 80061; 83735

== ENCOUNTER 2022-08-28 17:35 | Emergency (ER) | payer MEDICAID, SELFPAY ==
[2022-08-28 17:43] VITALS: BP 143/87; PULSE 56; RESP 16; TEMP 37.3; O2SAT 97
--- NOTE | 2022-08-28 18:04 | ED.GENADUL_ITS ---
Discharge Plan Disposition Patient Disposition: Home Condition: Good Discharge Details Clinical Impression: Bursitis, olecranon, Elbow pain Primary Care Provider: Maria C Osborn ED Provider: Angeles Banuelos Home Meds and New Rx's Prescriptions: Continued hydrochlorothiazide 25 mg tablet 25 mg PO DAILY Patient Comments: TAKE ONE TABLET BY MOUTH EVERY DAY amlodipine 5 mg Tablet 5 mg PO DAILY Qty: 20 0RF atorvastatin 20 mg Tablet 20 mg PO QPM Qty: 20 0RF metoprolol succinate 25 mg tablet extended release 24 hr 25 mg PO DAILY Qty: 20 0RF Excedrin Migraine 1 EACH tablet 1 ea PO Q6H PRN (Reason: Headache) Qty: 30 0RF Discharge Instructions Instructions: Elbow Bursitis (ED) Additional Instructions: As we discussed, your imaging is reassuring here today. No evidence of fracture or dislocation. I am concerned that you may have developed olecranon bursitis. Please encourage rest, ice, elevation. Tylenol and ibuprofen as needed for discomfort and swelling. Please use the Urbano wrap to help with compression. He may use the sling if around other people to help protect the area but otherwise, please try to take this off as frequently as possible to allow for increased range of motion. please follow-up with primary care in 1 week for reevaluation. If you develop redness, warmth, drainage, increased pain, fever/chills or other new/worsening symptoms please seek care urgently once again. Referrals: Maria C Osborn [Primary Care Provider] - Discharge Data Discharge Date/Time-TO BE ENTERED AT DEPARTURE: 08/28/22 19:55 Medical Decision Making Patient is a pleasant [id number]-bmntapxi 37-year-old female, accompanied by her significant other, with chief complaint of left elbow pain. She reports this began yesterday after she was gardening for some period of time on Sunday. She reports that initially all of her joints were achy which she reports is typical for her after this increase in exertion. However, the elbow was slightly more tender than the other joints. While the other joints have improved, the left elbow has increasing discomfort, she is now noting some diff iculty with range of motion and posterior pain and swelling. She denies any trauma. No fevers or chills. No numbness or tingling. Has been using acetaminophen to help with discomfort. On exam, patient appears nontoxic. 2+ distal pulses. Full range of motion of the wrist. No pain to palpation over the shoulder. Is able to extend to about 45 degrees and flex to about 90. Maximal point of swelling and discomfort is over the olecranon process. No erythema or warmth is appreciated. No known tick bites or exposures. Neurologically intact. Sensation intact. History and exam is most consistent with olecranon bursitis. Patient does have elevated BMI and isolating this feature is slightly difficult. However, with palpation this seems most consistent. We will give ibuprofen to help with discomfort and obtain imaging. FINDINGS: Bones/joints: Normal. Soft tissues: Normal. IMPRESSION: No acute findings. Discussed this with patient. Her hx and exam is most consistent with olecranon bursitis. We did discuss drainage to ensure no bacterial cause but this is not consistent with history or exam, she would also prefer to hold off on drainage. Struct return precations discussed. Geven location and onset after the overuse, not consistent with tick born illness. No systemic symptoms. Will wrap with URBANO, encouraged RICE. All of their questions and concerns were addressed, they are in agreement with this plan. HPI General Date/Time Provider Initiated Documentation: 08/28/22 18:04 . Limitations to Documentation: no limitations . Information obtained by: patient, family () and RN notes reviewed . History of Present Illness 37 year old F presents to the emergency department with the chief complaint of left elbow pain, described as moderate, with intensity rated at 6. Quality is described as aching, and is localized to the left and upper extremity. Patient reports no radiation. Patient started experiencing this day(s) (2) and it has been constant. Immobilization improves symptom(s), Movement worsens symptoms . Patient notes no other symptoms.. Patient did receive the following treatments prior to arrival, NSAID Related Data Home Medications Medication Instructions Recorded Confirmed [id number] 250 1 ea PO Q6H PRN Headache ##30 09/28/16 08/28/22 mg-250 mg-65 mg tablet (Excedrin Migraine) hydrochlorothiazide 25 mg tablet 25 mg PO DAILY 08/12/21 08/28/22 amlodipine 5 mg tablet 5 mg PO DAILY #20 tabs 08/13/21 08/28/22 atorvastatin 20 mg tablet 20 mg PO QPM #20 tabs 08/13/21 metoprolol succinate 25 mg 25 mg PO DAILY #20 tabs 08/13/21 08/28/22 tablet,extended release 24 hr Previous Rx's Medication Instructions Recorded [id number]-[id number] 250 1 ea PO Q6H PRN Headache ##30 09/28/16 mg-250 mg-65 mg tablet (Excedrin Migraine) amlodipine 5 mg tablet 5 mg PO DAILY #20 tabs 08/13/21 atorvastatin 20 mg tablet 20 mg PO QPM #20 tabs 08/13/21 metoprolol succinate 25 mg 25 mg PO DAILY #20 tabs 08/13/21 tablet,extended release 24 hr Allergies Allergy/AdvReac Type Severity Reaction Status Date / Time No Known Allergies Allergy Unverified 08/28/22 17:46 General Stated Complaint: Orthopedic COLETTE: 4 Review of Systems Constitutional Constitutional: Reports as per HPI, Denies chills, Denies fever(s), Denies headache(s) and Denies weakness ENT Ears, Nose, Mouth, and Throat: Denies headache(s) Cardiovascular Cardiovascular: Reports as per HPI Respiratory Respiratory: Reports as per HPI and Denies cough Musculoskeletal Musculoskeletal: Reports as per HPI and Denies tingling Integumentary/Breasts Skin/Breast: Reports as per HPI, Denies rash and Denies wounds Neurologic Neurologic: Reports as per HPI, Denies headache(s), Denies tingling, Denies paresthesias and Denies weakness PFSH All Active Problems (Updated 08/28/22 @ 19:42 by KATHY Walton) Bursitis, olecranon (Acute) Elbow pain (Acute) LISA (obstructive sleep apnea) (Chronic) Hypomagnesemia (Acute) Hyperlipidemia (Acute) Dental abscess (Acute) Medical History Dizzy spells (10/19/16) HTN (hypertension) IUD surveillance (10/18/12) IUD surveillance (09/08/16) Migraine (09/08/16) Migraine without aura and without status migrainosus, not intractable (10/19/16) Morbid obesity Surgical History No significant past surgical history Family History Mother Diabetes Essential hypertension Migraine Father No problems noted. Grandmother Breast cancer paternal Social History Smoking/Tobacco Use Status: Former Tobacco Use Smoking risk assessment performed?: Yes Alcohol Intake: never Drug use: Never Substance use type: does not use Do you feel safe at home: Yes Do you feel safe in your relationship?: Yes Exam Const General: cooperative, healthy appearing, comfortable (appears uncomfortable with movement of the LUE), no acute distress, well developed and well groomed Nutritional Appearance: well nourished and overweight Orientation: alert and awake Resp Effort & Inspection: normal respiratory effort, able to speak in complete sentences and no respiratory distress Cardio Rate: regular rate Rhythm: regular rhythm Skin General skin exam: no rashes or lesions noted Lesions: no lesions Rashes: no rashes Trauma: no lacerations or abrasions Neuro General: patient alert and patient awake Cognition: normal cognition Speech: speech normal Motor: muscle tone normal throughout Sensory Exam: no sensory deficits noted Extrem Elbow/forearm/wrist images: 1. Area of maximal discomfort is over the left olectranon. 2+ distal pulses. sensation intact. RROM is limited with both flexion and extension lacking full range. Full pronation and supination. full ROM of wrist, hand and sholder. No erythema, warmth or drainage posterior elbow but this area is swollen over the olecrranon bursa. No break in the skin. No pain over the medial or lateral epicondylitis. Psych Appearance: grossly normal and well kempt Mental Status: mental status grossly normal Speech and Movement: speech and movement normal Course Vital Signs Vital signs: Vital Signs Temperature 37.3 C 08/28/22 17:43 Pulse 56 L 08/28/22 17:43 Respiratory Rate 16 08/28/22 17:43 Blood Pressure 143/87 H 08/28/22 17:43 Pulse Oximetry 97 08/28/22 17:43 Temperature 37.3 C 08/28/22 17:43 Temperature Source Oral 08/28/22 17:43 Pulse 56 L 08/28/22 17:43 Respiratory Rate 16 08/28/22 17:43 Respiratory Effort Normal 08/28/22 17:46 Blood Pressure 143/87 H 08/28/22 17:43 Blood Pressure Position Sitting 08/28/22 17:43 Pulse Oximetry 97 08/28/22 17:43 Oxygen Delivery Method Room Air 08/28/22 17:43 Oxygen Flow Rate 0 08/28/22 17:43 Pain Level 6 08/28/22 17:57
--- NOTE | 2022-08-28 18:15 | DI.RAD_ITS ---
Exam(s) XR ELBOW LT COMPLETE EXAM: XR ELBOW LT COMPLETE CLINICAL HISTORY: olecranon pain/swelling. TECHNIQUE: 2D digital imaging was performed of the left elbow. Three images were obtained. AP, lat eral and oblique views were obtained. COMPARISON: No exams were available for comparison FINDINGS: BONES: No acute fracture is present. No bony destructive lesion is seen. JOINTS: The elbow is normally aligned. No joint effusion is seen. SOFT TISSUE: Normal. IMPRESSION: Unremarkable radiographs of the left elbow. DATA REPOSITORY: RADIATION DOSE DELIVERED:
[2022-08-28] MEDS: Ibuprofen 600 MG TAB PO (18:28)
[2022-08-28 19:13] VITALS: BP 119/82; PULSE 51; RESP 20; TEMP 36.7; O2SAT 96
--- NOTE | 2022-08-28 19:24 | DI.VRAD_ITS ---
PROCEDURE INFORMATION: Exam: XR Left Elbow Exam date and time: 08/28/2022 6:56 PM Age: 37 years old Clinical indication: Left; Patient HX: L elbow pain, lrom, no known trauma TECHNIQUE: Imaging protocol: Radiologic exam of the left elbow. Views: 3 or more views. COMPARISON: No relevant prior studies available. FINDINGS: Bones/joints: Normal. Soft tissues: Normal. IMPRESSION: No acute findings. Dictated and Authenticated by: Fabián Frias MD. Ordering:TATY Reynoso MD
--- NOTE | 2022-08-31 10:46 | NUR.NOTE ---
Nursing Note:Accessed chart for [facility] billing purposes.
== END 2022-08-28 19:55 | disposition home or self-care (01) ==
PROVIDERS: Emergency Provider Physician Assistant; PCP Nurse Practitioner Family
DX: M70.22 Olecranon bursitis, left elbow (principal); I10 Essential (primary) hypertension; Z79.82 Long term (current) use of aspirin
CPT/HCPCS: 81025; 99283; 73080

== ENCOUNTER 2022-11-29 23:57 | Emergency (ER) | payer MEDICAID, SELFPAY ==
[2022-11-30] VITALS: BP 168/106; PULSE 69; RESP 16; TEMP 37.1; O2SAT 96
[2022-11-30 00:11] LABS: Bilirubin Negative (Negative); Blood Large (Negative); Clarity Cloudy (Clear); Glucose Negative (Negative); Ketones Negative (Negative); Leukocyte Esterase Large (Negative); Nitrite Negative (Negative); Urobilinogen 0.2 mg/dL (Up to 0.2); pH 6.5 (5-8)
[2022-11-30] MEDS: Ondansetron 4 MG/2 ML VIAL IVP (00:15)
--- NOTE | 2022-11-30 00:15 | ED.GENADUL_ITS ---
Discharge Plan Disposition Patient Disposition: Home Discharge Details Clinical Impression: Nausea & vomiting, Acute dehydration, UTI (urinary tract infection) Primary Care Provider: Maria C Osborn ED Provider: Fredy Still Home Meds and New Rx's Prescriptions: New ondansetron 4 mg tablet,disintegrating 4 mg PO Q8H Qty: 20 0RF cephalexin 500 mg capsule 500 mg PO QID 7 Days Qty: 28 0RF No Action hydrochlorothiazide 25 mg tablet 25 mg PO DAILY Patient Comments: TAKE ONE TABLET BY MOUTH EVERY DAY amlodipine 5 mg Tablet 5 mg PO DAILY Qty: 20 0RF atorvastatin 20 mg Tablet 20 mg PO QPM Qty: 20 0RF metoprolol succinate 25 mg tablet extended release 24 hr 25 mg PO DAILY Qty: 20 0RF Excedrin Migraine 1 EACH tablet 1 ea PO Q6H PRN (Reason: Headache) Qty: 30 0RF Discharge Instructions Instructions: Urinary Tract Infection in Women (ED), Acute Nausea and Vomiting (ED) Additional Instructions: At this time your electrolytes are stable. I suspect the nausea and vomiting diarrhea secondary to a viral etiology. In addition to this you do have a urinary tract infection. Please take the antibiotic as directed. It is been sent to your pharmacy on file. Please take the Zofran as needed for nausea and vomiting. If you notice any worsening of your symptoms, or any new symptoms such as vomiting, diarrhea, fever, chills, shortness of breath, chest pain, numbness, weakness, or fainting , please return immediately to the emergency department for reevaluation. Please follow up with your primary care provider as soon as possible for reassessment and reevaluation. As always, it was a pleasure participating in your medical care today. Referrals: Maria C Osborn [Primary Care Provider] - Discharge Data Discharge Date/Time-TO BE ENTERED AT DEPARTURE: 11/30/22 02:33 Medical Decision Making 37-year-old female with a past medical history of hypertension presents today for nausea and vomiting and diarrhea. Patient states [place] and [place] while [place] there 3 days ago she began feeling nauseous. Since then she has had nausea vomiting and diarrhea every day. She has not been able to keep anything down including water or crackers or toast. In addition to this she has had urinary burning frequency and feeling of pressure in the suprapubic region. She denies any fever or chills. No antibiotic use recently. No other sick contacts at home. No other generalized abdominal pain. No other complaints at this time. Exam demonstrates nontender abdomen. No flank or CVA tenderness. Notably dry mucous membranes are present. Differential is highest for gastroenteritis, potentially foodborne but more likely viral. We will get basic labs, rehydrate, evaluate for UTI, monitor closely and reassess. 2 L of IV fluids patient is feeling much better. She was able to tolerate p.o. well. Laboratory work-up is otherwise stable. Patient stable for discharge. Will give Zofran for home use. Repeat abdominal exam shows no tenderness whatsoever. Symptoms inconsistent with an acute surgical abdomen. Patient stable for discharge. Suspect viral etiology causing mild gastroenteritis clinically. I switched to return. I have extensively reviewed the treatment plan and discharge instructions with the patient. I have addressed all patient concerns at this time. The patient was made aware of what symptoms to monitor for that would warrant a return to the emergency department. Discussed the plan with the patient, they demonstrate verbal understanding and agreement with our assessment and plan at this time. The documentation in this chart was dictated using [employer] dictation software. Please excuse any dictation errors. HPI General Date/Time Provider Initiated Documentation: 11/30/22 00:04 . HPI Narrative: 37-year-old female with a past medical history of hypertension presents today for nausea and vomiting and diarrhea. Patient states that [place], and unfortunately while [place] there 3 days ago she began feeling nauseous. Since then she has had nausea vomiting and diarrhea every day. She has not been able to keep anything down including water or crackers or toast. In addition to this she has had urinary burning frequency and feeling of pressure in the suprapubic region. She denies any fever or chills. No antibiotic use recently. No other sick contacts at home. No other generalized abdominal pain. No other complaints at this time. Related Data Home Medications Medication Instructions Recorded Confirmed [id number]-odywkobqcsrge-gmdhyvqo 250 1 ea PO Q6H PRN Headache ##30 09/28/16 11/30/22 mg-250 mg-65 mg tablet (Excedrin Migraine) hydrochlorothiazide 25 mg tablet 25 mg PO DAILY 08/12/21 11/30/22 amlodipine 5 mg tablet 5 mg PO DAILY #20 tabs 08/13/21 11/30/22 atorvastatin 20 mg tablet 20 mg PO QPM #20 tabs 08/13/21 11/30/22 metoprolol succinate 25 mg 25 mg PO DAILY #20 tabs 08/13/21 11/30/22 tablet,extended release 24 hr cephalexin 500 mg capsule 500 mg PO QID 7 days #28 caps 11/30/22 ondansetron 4 mg disintegrating 4 mg PO Q8H #20 tabs 11/30/22 tablet Previous Rx's Medication Instructions Recorded [id number]-mrfbmndeifyhs-gveiewkk 250 1 ea PO Q6H PRN Headache ##30 09/28/16 mg-250 mg-65 mg tablet (Excedrin Migraine) amlodipine 5 mg tablet 5 mg PO DAILY #20 tabs 08/13/21 atorvastatin 20 mg tablet 20 mg PO QPM #20 tabs 08/13/21 metoprolol succinate 25 mg 25 mg PO DAILY #20 tabs 08/13/21 tablet,extended release 24 hr cephalexin 500 mg capsule 500 mg PO QID 7 days #28 caps 11/30/22 ondansetron 4 mg disintegrating 4 mg PO Q8H #20 tabs 11/30/22 tablet Allergies Allergy/AdvReac Type Severity Reaction Status Date / Time No Known Allergies Allergy Unverified 11/30/22 00:29 General Stated Complaint: Urinary COLETTE: 3 Review of Systems All systems reviewed & are unremarkable except as noted in HPI and below PFSH All Active Problems (Updated 11/30/22 @ 01:41 by Fredy Still DO) Nausea & vomiting (Acute) Acute dehydration (Acute) UTI (urinary tract infection) (Acute) LISA (obstructive sleep apnea) (Chronic) Hypomagnesemia (Acute) Hyperlipidemia (Acute) Dental abscess (Acute) Medical History Dizzy spells (10/19/16) HTN (hypertension) IUD surveillance (10/18/12) IUD surveillance (09/08/16) Migraine (09/08/16) Migraine without aura and without status migrainosus, not intractable (10/19/16) Morbid obesity Surgical History No significant past surgical history Family History Mother Diabetes Essential hypertension Migraine Father No problems noted. Grandmother Breast cancer paternal Social History Smoking/Tobacco Use Status: Former Tobacco Use Smoking risk assessment performed?: Yes Alcohol Intake: never Drug use: Never Substance use type: does not use Do you feel safe at home: Yes Do you feel safe in your relationship?: Yes Exam Narrative Exam Narrative: 1.Const: Well-nourished, Well-developed, appearing stated age 2.Eyes: PERRL, no conjunctival injection, and symmetrical lids. 3.ENT: Atraumatic external nose and ears. Dry MM. Neck: Symmetric, trachea midline, No thyromegaly. 4.CVS: +S1/S2, No murmurs or gallops. Peripheral pulses 2+ and equal in all e xtremities. Brisk capillary refill in all extremities. 5.RESP: Unlabored respiratory effort. Clear to auscultation bilaterally. No wheezes rales or rhonchi 6.GI: Soft, Nontender/Nondistended, No hepatosplenomegaly. No guarding or rebound. No flank or CVA tenderness 7.MSK: Normocephalic/Atraumatic, Extremities w/o deformity or ttp No cyanosis or clubbing, Normal movement of all extremities 8.Skin: Warm, Dry. No rashes or lesions. 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 Sensation grossly intact, no focal neurologic deficits. 10.Psych: (AAO) x3. Appropriate mood and affect Course Vital Signs Vital signs: Vital Signs Temperature 37.1 C 11/30/22 00:00 Pulse 69 11/30/22 00:00 Respiratory Rate 16 11/30/22 00:00 Blood Pressure 168/106 H 11/30/22 00:00 Pulse Oximetry 96 11/30/22 00:00 Temperature 37.1 C 11/30/22 00:00 Temperature Source Oral 11/30/22 00:00 Pulse 69 11/30/22 00:00 Respiratory Rate 16 11/30/22 00:00 Respiratory Effort Normal 11/30/22 00:00 Blood Pressure 168/106 H 11/30/22 00:00 Pulse Oximetry 96 11/30/22 00:00 Oxygen Delivery Method Nasal Cannula 11/30/22 00:00
[2022-11-30 00:20] LABS: WBC >50 HPF (0-5)
[2022-11-30 00:21] LABS: Bacteria Moderate HPF (Negative); C & S Indicated? No/Sq. Contamination; Crystals Negative HPF (Negative); Epithelial Cells Moderate HPF (Negative); Mucus Trace (Negative)
[2022-11-30] MEDS: Normal Saline 1,000 ML 1000 ML IV (00:40)
[2022-11-30] MEDS: cefTRIAXone 2 GM/50 ML BAG IVPB (01:00)
[2022-11-30 01:14] LABS: Abs Immature Grans 0.04 10^3/uL (0.0-0.06); Absolute Basophil Count 0.02 10^3/uL (0.0-0.2); Absolute Eosinophil Count 0.14 10^3/uL (0.0-0.7); Absolute Lymphocyte Count 2.16 10^3/uL (1.2-3.4); Absolute Monocyte Count 0.61 10^3/uL (0.1-0.8); Absolute Neutrophil Count 7.41 10^3/uL (1.2-6.7); Basophils % 0.2; Eosinophils % 1.3; HCT 37.7 % (36.0-46.0); HGB 12.6 g/dL (11.2-15.7); Immature Grans % 0.4; Lymphocytes % 20.8; MCH 28.8 pg (27.0-33.0); MCHC 33.4 % (32.0-36.0); MCV 86 fL (80-95); MPV 8.6 fL (8.0-11.0); Monocytes % 5.9; Neutrophils % 71.4; Platelet Count 259 10^3/uL (130-400); RBC 4.38 10^6/uL (3.93-5.22); RDW 12.9 % (11.7-14.6); WBC 10.38 10^3/uL (4.4-10.8)
[2022-11-30 01:30] LABS: ALT 25 U/L (14-59); AST 10 U/L (15-37); Albumin 3.4 g/dL (3.4-5.0); Alkaline Phosphatase 62 U/L (46-116); Anion Gap 8.8 mmol/L (3-11); BUN 17 mg/dL (7-18); Bilirubin, Total 0.3 mg/dL (0.2-1.0); CO2 30.2 mmol/L (21.0-32.0); CREATININE 1.1 mg/dL (0.55-1.02); Calcium 8.9 mg/dL (8.5-10.1); Chloride 102 mmol/L (98-107); Estimated GFR 65.55 (mL/min/1.73m2); Glucose 166 mg/dL (74-106); Lipase 32 U/L (16-77); Potassium 3.4 mmol/L (3.5-5.1); Sodium 141 mmol/L (136-145); Total Protein 7.5 g/dL (6.4-8.2)
[2022-11-30] MEDS: Lactated Ringers 1,000 ML 1000 ML IV (01:35)
[2022-11-30] MEDS: Ondansetron O.D.T. 4 MG TABEF, 3 TABS/BTL PO (01:59)
[2022-11-30 02:20] VITALS: BP 157/99; PULSE 74; RESP 16; TEMP 37.1; O2SAT 97
== END 2022-11-30 02:33 | disposition home or self-care (01) ==
PROVIDERS: Emergency Provider Student in an Organized Health Care Education/Training Program; PCP Nurse Practitioner Family
DX: E86.0 Dehydration (principal); N39.0 Urinary tract infection, site not specified; R11.2 Nausea with vomiting, unspecified; R19.7 Diarrhea, unspecified; I10 Essential (primary) hypertension; E78.5 Hyperlipidemia, unspecified; Z87.891 Personal history of nicotine dependence
CPT/HCPCS: 36415; 80053; 81025; 83690; 96361; 96365; 96375; 99284; 81003; 81015; 85025; J2405

== ENCOUNTER 2023-12-04 16:16 | Outpatient (REF) | payer MEDICAID, SELFPAY ==
--- NOTE | 2023-12-04 15:00 | PAPFT_PTH ---
PATIENT: Flora Roldan I LOC: [facility]#:[id number] AGE/SX: 38/F ROOM: RE12/04/[address]: Maria C Osborn : 1985 BED: DIS: 12/04/2023 SPEC #: [id number] RECD: 12/05/23 13:13 STATUS: BHARATH RENel #: [id number] GEGE: 12/04/23 15:[address]: Maria C Osborn DEPT: [facility] Cytology RECD BY: Nannette Medina Tissues: 1 - CX/ENDOCX FOR PAP SMEARS Procedures: PAP THIN PREP/UVM Screening HPV DNA PROBE Comments: [id number] (HPV 16 & 18/45) (CHLAMYDIA/GC)
[2023-12-04 21:15] LABS: HGB 13.1 g/dL (11.2-15.7); MCH 29.1 pg (27.0-33.0); MCHC 33.6 % (32.0-36.0); MCV 87 fL (80-95); MPV 9.7 fL (8.0-11.0); Platelet Count 270 10^3/uL (130-400); RDW 13.3 % (11.7-14.6); RDW-SD 41.2 fL; WBC 7.86 10^3/uL (4.4-10.8)
[2023-12-04 21:43] LABS: ALT 39 U/L (14-59); AST 15 U/L (15-37); Albumin 3.6 g/dL (3.4-5.0); Alkaline Phosphatase 62 U/L (46-116); Anion Gap 6.5 mmol/L (3-11); BUN 14 mg/dL (7-18); Bilirubin, Total 0.24 mg/dL (0.2-1.0); CO2 34.5 mmol/L (21.0-32.0); Calcium 9.7 mg/dL (8.5-10.1); Calculated LDL 81 mg/dL (<100); Chloride 99 mmol/L (98-107); Cholesterol 188 mg/dL (<200); Estimated GFR 73.04 (mL/min/1.73m2); Ferritin 85 ng/mL (8-252); Glucose 161 mg/dL (74-106); HDL Cholesterol 38 mg/dL (40-60); Magnesium 1.5 mg/dL (1.8-2.4); Potassium 3.3 mmol/L (3.5-5.1); Sodium 140 mmol/L (136-145); Triglyceride 346 mg/dL (<150)
[2023-12-04 22:22] LABS: Iron 74 ug/dL (50-170); Total Iron Binding Capacity 336 ug/dL (250-450); Transferrin Sat 22 % (15-50)
[2023-12-04 22:23] LABS: COMMENT (LAB VIEW ONLY) 118.97 mg/dL; Microalb ug/mg Crea 32.9 ug/mg Cr
[2023-12-05 16:53] LABS: Hemoglobin A1C 7.4 % (<5.7)
[2023-12-06 11:41] LABS: Chlamydia Result Negative (Negative); GC Result Negative (Negative)
== END 2023-12-04 16:17 | disposition home or self-care (01) ==
LOC: NCHCN 16:16
PROVIDERS: PCP Nurse Practitioner Family; Visit Provider Nurse Practitioner Family
DX: Z12.4 Encounter for screening for malignant neoplasm of cervix (principal); R73.03 Prediabetes; E83.42 Hypomagnesemia; N92.0 Excessive and frequent menstruation with regular cycle; Z00.00 Encounter for general adult medical examination without abnormal findings
CPT/HCPCS: 80053; 80061; 85027; 87491; 87591; 88142; 82043; 82570; 82728; 83036; 83540; 83550; 83735; 87624

== ENCOUNTER 2023-12-12 13:43 | Outpatient (REF) | payer MEDICAID, SELFPAY ==
--- NOTE | 2023-12-12 15:52 | CER_PTH ---
PATIENT: Flora Roldan I LOC: [facility] U#:[id number] AGE/SX: 38/F ROOM: RE12/12/[address]: Aimee Mo MD : 1985 BED: DIS: 12/12/2023 SPEC #: [id number] RECD: 12/13/23 14:22 STATUS: BHARATH RENel #: [id number] GEGE: 12/12/23 15:[address]: Aimee Mo DEPT: Surgical Specimen RECD BY: Wendy Doshi ENTERED: 12/13/23 14:24 SP TYPE: CER OTHR DR: Maria C Osborn Tissues: 1 - CERVICAL BIOPSY Procedures: GROSS AND MICRO LEVEL 4 Comments: [id number]
== END 2023-12-12 13:44 | disposition home or self-care (01) ==
LOC: LBN 13:43
PROVIDERS: PCP Nurse Practitioner Family; Visit Provider Obstetrics & Gynecology
DX: N84.1 Polyp of cervix uteri (principal); Z87.42 Personal history of other diseases of the female genital tract; N92.0 Excessive and frequent menstruation with regular cycle
CPT/HCPCS: 88305

== ENCOUNTER 2024-02-21 | Emergency (ER) | payer MEDICAID, SELFPAY ==
[2024-02-21 00:03] VITALS: BP 142/103; PULSE 77; RESP 18; TEMP 36.8; O2SAT 97
--- NOTE | 2024-02-21 00:10 | ED.GENADUL_ITS ---
Discharge Plan Disposition Patient Disposition: Home Condition: Good Discharge Details Clinical Impression: Spasm of right trapezius muscle Primary Care Provider: Maria C Osborn ED Provider: Christiano Payne Meds and New Rx's Prescriptions: New lidocaine 5 % adhesive patch,medicated 1 patch topical DAILY Qty: 15 0RF Rx Instructions: leave on most painful area for up to 12 hrs orphenadrine citrate 100 mg tablet extended release 100 mg PO BID PRN (Reason: muscle spasm) Qty: 10 0RF Continued hydrochlorothiazide 25 mg tablet 25 mg PO DAILY Patient Comments: TAKE ONE TABLET BY MOUTH EVERY DAY amlodipine 5 mg Tablet 5 mg PO DAILY Qty: 20 0RF Excedrin Migraine 1 EACH tablet 1 ea PO Q6H PRN (Reason: Headache) Qty: 30 0RF Discharge Instructions Instructions: Using Heat for Pain, Muscle Spasm ED Additional Instructions: You are having spasm in the right trapezius muscle resulting in pain and stiffness. Continue alternating acetaminophen 1 g with ibuprofen 600 mg every 4 hours as we discussed. A prescription for muscle relaxant and lidocaine patches have been sent to your pharmacy. Heat and gentle massage will also help. F ollow-up with primary care in the next couple of days for recheck. Return to ED for any type of neurologic change, arm weakness, arm numbness, chest pain, shortness of breath. Referrals: Maria C Osborn [Primary Care Provider] - [facility] General Mode of arrival: ambulatory . Date/Time Provider Initiated Documentation: 02/21/24 00:09 . Limitations to Documentation: no limitations . Information obtained by: patient and RN notes reviewed . HPI Narrative: Patient presents to ED with right sided neck pain and stiffness. Patient reports waking up Sunday morning with stiffness in the neck. She has been taking ibuprofen and acetaminophen without relief. Neck now extremely stiff and tight on the right side. She has pain in the back of the head down into the right shoulder. Denies any injury. Denies any neurologic changes. Denies any chest pain or shortness of breath. Able to lift her arms but is not able to turn her head because of pain in the right lateral neck. Related Data Home Medications ?Medication ?Instructions ?Recorded ?Confirmed [id number] 250 1 ea PO Q6H PRN Headache #30 tabs 09/28/16 02/21/24 mg-250 mg-65 mg tablet (Excedrin Migraine) hydrochlorothiazide 25 mg tablet 25 mg PO DAILY 08/12/21 02/21/24 amlodipine 5 mg tablet 5 mg PO DAILY #20 tabs 08/13/21 02/21/24 lidocaine 5 % topical patch 1 patch topical DAILY #15 ea 02/21/24 orphenadrine citrate 100 mg 100 mg PO BID PRN muscle spasm #10 02/21/24 tablet,extended release tabs Previous Rx's ?Medication ?Instructions ?Recorded [id number] 250 1 ea PO Q6H PRN Headache #30 tabs 09/28/16 mg-250 mg-65 mg tablet (Excedrin Migraine) amlodipine 5 mg tablet 5 mg PO DAILY #20 tabs 08/13/21 lidocaine 5 % topical patch 1 patch topical DAILY #15 ea 02/21/24 orphenadrine citrate 100 mg 100 mg PO BID PRN muscle spasm #10 02/21/24 tablet,extended release tabs Allergies Allergy/AdvReac Type Severity Reaction Status Date / Time No Known Allergies Allergy Unverified 02/21/24 00:02 General Stated Complaint: Nk/Back Pain COLETTE: 3 Review of Systems Narrative: Per HPI Exam Narrative Exam Narrative: Const: Obese female in NAD. VS per triage. HEENT: NC/AT. Normal facial exam. Neck: Trachea midline. Spasm and tenderness along the right trapezius muscle extending from the insertion point on the occipital notch down the right side of the neck into the upper shoulder region. Lower trapezius is normal. Left side completely soft and nontender. Lungs: Normal respiratory effort. Cor: RRR with normal radial pulse. Neuro: A+O x 3. Normal speech, mentation, gait. Cranial nerves II - XII grossly intact. No gross motor or sensory deficit. Normal UE strength and sensation. Course Vital Signs Vital signs: Vital Signs Temperature 98.2 F 02/21/24 00:03 Pulse 77 02/21/24 00:03 Respiratory Rate 18 02/21/24 00:03 Blood Pressure 142/103 H 02/21/24 00:03 Pulse Oximetry 97 02/21/24 00:03 Temperature 98.2 F 02/21/24 00:03 Temperature Source Temporal Artery Scan 02/21/24 00:03 Pulse 77 02/21/24 00:03 Respiratory Rate 18 02/21/24 00:03 Respiratory Effort Normal, Non-Labored 02/21/24 00:07 Blood Pressure 142/103 H 02/21/24 00:03 Blood Pressure Position Sitting 02/21/24 00:03 Pulse Oximetry 97 02/21/24 00:03 Oxygen Delivery Method Room Air 02/21/24 00:03 Oxygen Flow Rate 0 02/21/24 00:03 Pain Level 7 02/21/24 00:07 Medical Decision Making Patient presenting to ED with right sided neck pain that is associated with tenderness along the trapezius muscle as well as spasm and tightness. Limited range of motion of the neck because of pain. Normal range of motion of the upper extremities with normal strength and sensation. No neurologic changes. No vision change or vertigo. There is been no trauma. No concern for vertebral artery dissection, cervical radiculitis. Signs and symptoms consistent with right trapezial spasm. Patient given IM ketorolac and orphenadrine as well as topical lidocaine patch. Discussed use of heat and massage. Prescription for lidocaine patch and oral orphenadrine sent to pharmacy. Alternating acetaminophen with ibuprofen on a 4-hour basis discussed. Follow-up with primary care. Return precautions provided. PFSH All Active Problems Spasm of right trapezius muscle (Acute) Menorrhagia (Acute) Medical History LISA (obstructive sleep apnea) Hyperlipidemia History of abnormal cervical Pap smear Migraine (09/08/16) Morbid obesity HTN (hypertension) Surgical History Cervical polyp Removed 12/12/23 Family History Mother Diabetes Essential hypertension Migraine Father No problems noted. Grandmother Breast cancer paternal Social History Smoking/Tobacco Use Status: Former Tobacco Use Smoking risk assessment performed?: Yes Alcohol Intake: never Drug use: Never Substance use type: does not use Housing: house Do you feel safe at home: Yes Do you feel safe in your relationship?: Yes
[2024-02-21] MEDS: Ketorolac 30 MG/ML VIAL IM (00:34)
[2024-02-21] MEDS: Lidocaine 5% Patch 1 PATCH TP (00:34)
[2024-02-21] MEDS: Orphenadrine 60 MG/2 ML VIAL IM (00:35)
== END 2024-02-21 00:35 | disposition home or self-care (01) ==
PROVIDERS: Emergency Provider Emergency Medicine; PCP Nurse Practitioner Family
DX: M62.830 Muscle spasm of back (principal); M54.2 Cervicalgia; Z87.891 Personal history of nicotine dependence
CPT/HCPCS: 96372; 99283; J2360; J1885

== ENCOUNTER 2024-06-03 13:52 | Outpatient (REF) | payer MEDICAID, SELFPAY ==
[2024-06-03 16:22] LABS: COMMENT (LAB VIEW ONLY) 189.72 mg/dL; Microalb ug/mg Crea 35.2 ug/mg Cr
== END 2024-06-03 13:53 | disposition home or self-care (01) ==
LOC: NCHCN 13:52
PROVIDERS: PCP Nurse Practitioner Family; Visit Provider Nurse Practitioner Family
DX: E11.9 Type 2 diabetes mellitus without complications (principal)
CPT/HCPCS: 82043; 82570

== ENCOUNTER 2025-01-14 16:23 | Outpatient (REF) | payer MEDICAID, SELFPAY ==
[2025-01-14 20:59] LABS: HCT 40.1 % (36.0-46.0); HGB 13.4 g/dL (11.2-15.7); MCH 27.7 pg (27.0-33.0); MCHC 33.4 % (32.0-36.0); MCV 83 fL (80-95); MPV 9.3 fL (8.0-11.0); Platelet Count 296 10^3/uL (130-400); RBC 4.83 10^6/uL (3.93-5.22); RDW 13.1 % (11.7-14.6); RDW-SD 39.1 fL; WBC 9.45 10^3/uL (4.4-10.8)
[2025-01-14 21:32] LABS: ALT 30 U/L (14-59); AST 18 U/L (15-37); Albumin 3.7 g/dL (3.4-5.0); Alkaline Phosphatase 58 U/L (46-116); Anion Gap 8.6 mmol/L (3-11); BUN 13 mg/dL (7-18); Bilirubin, Total 0.4 mg/dL (0.2-1.0); CO2 31.4 mmol/L (21.0-32.0); Calcium 9.5 mg/dL (8.5-10.1); Chloride 101 mmol/L (98-107); Estimated GFR 72.58 (mL/min/1.73m2); Glucose 105 mg/dL (74-106); Potassium 3.3 mmol/L (3.5-5.1); Sodium 141 mmol/L (136-145); Total Protein 7.1 g/dL (6.4-8.2)
[2025-01-14 21:41] LABS: COMMENT (LAB VIEW ONLY) < 13.00 mg/dL; Microalb ug/mg Crea 20.0 ug/mg Cr
[2025-01-14 22:19] LABS: Hemoglobin A1C 6.5 % (<5.7)
== END 2025-01-14 16:24 | disposition home or self-care (01) ==
LOC: NCHCN 16:23
PROVIDERS: PCP Nurse Practitioner Family; Visit Provider Nurse Practitioner Family
DX: R80.9 Proteinuria, unspecified (principal); Z00.00 Encounter for general adult medical examination without abnormal findings; E11.9 Type 2 diabetes mellitus without complications
CPT/HCPCS: 80053; 85027; 82043; 82570; 83036